=== PATIENT | female | born 1990 | race Caucasian/White ===

== ENCOUNTER 2018-01-14 21:33 | Emergency (ER) | payer BC ==
[~2018-01-14] VITALS: Ht 160 cm; Wt 67.0 kg
[2018-01-14 22:25] VITALS: BP 129/89; PULSE 99; RESP 16; TEMP 97.9; O2SAT 99
[2018-01-14 22:50] VITALS: BP 133/86; PULSE 99; RESP 20; O2SAT 100
[2018-01-14] MEDS ORDERED: MONT10TA4 PO (22:54)
[2018-01-14] MEDS ORDERED: CHIL5SOL PO (22:54)
[2018-01-14] MEDS ORDERED: NOVOLOGP2 SQ (22:54)
--- NOTE | 2018-01-14 23:08 | RADRPT ---
EXAM DATE/TIME: 01/14/2018 22:35 [place] COMPARISON: No previous studies available for comparison. INDICATIONS : Upper extremity tingling and numbness sudden onset 2 hours ago. Thyroidectomy yesterday. MEDICAL HISTORY : None. SURGICAL HISTORY : Thryoidectomy. ENCOUNTER: Initial ACUITY: 1 day PAIN SCORE: 0/10 LOCATION: Bilateral chest FINDINGS: PA and lateral views of the chest demonstrate the lungs to be symmetrically aerated without evidence of mass, infiltrate or effusion. The cardiomediastinal contours are unremarkable. Osseous structure s are intact. CONCLUSION: No acute disease. Severiano Baez MD on January 14, 2018 at 23:05 Board Certified Radiologist. This report was verified electronically.
[2018-01-15] MEDS ORDERED: SODIUM CHLOR 0.9% 1000 ML INJ 1,000 ML IV ONE
--- NOTE | 2018-01-15 00:07 | PD ---
HPI . 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 She is concerned about hypocalcemia. She states that she has eaten 10 Tums and drank a large glass of milk without relief of her symptoms prompted her to visit us [facility]. She rates her symptoms as 10/10 and describes the quality of the symptoms as restlessness. The symptoms have been constant. Onset was today. PFSH Past Medical History ?: Not Past Surgical History Tonsillectomy: Yes Other Surgery: Yes (Thyroidectomy) Social History Alcohol Use: No Tobacco Use: No Substance Use: No Allergies-Medications (Allergen,Severity, Reaction): Coded Allergies: No Known Allergies (Unverified , 01/14/18) Reported Meds & Prescriptions Reported Meds & Active Scripts Active Reported Loratadine Allergy (Loratadine) 5 Mg/5 Ml Solution 10 Mg PO Montelukast (Montelukast Sodium) 10 Mg Tab 10 Mg PO HS Novolog Inj (Insulin Aspart) 1,000 Unit/10 Ml Vial 1-9 Units SQ ACHS Max dose at bedtime:( )units; sugars less than 70,(0)units; sugars 150-199,(1) unit; sugars 200-249,(3) units; sugars 250-299,(5) units; sugars 300-349,(7) units; sugars greater than 349,(9) units Review of Systems Except as stated in HPI: all other systems reviewed are Neg General / Constitutional: No: Fever, Chills Neurologic: Positive: Paresthesia, Other (Twitching) Physical Exam Narrative GENERAL: Awake and alert and in no acute distress. SKIN: Warm and dry. HEAD: Normocephalic/atraumatic. EYES: Pupils are equal. Extraocular movements are intact. NECK: Normal range of motion. CARDIOVASCULAR: Regular rate and rhythm. RESPIRATORY: Nonlabored respirations. MUSCULOSKELETAL: Atraumatic. NEUROLOGICAL: Nonfocal. PSYCHIATRIC: Appropriate mood and affect. Data Data Last Documented VS Vital Signs Date Time Temp Pulse Resp B/P (MAP) Pulse Ox O2 Delivery O2 Flow Rate FiO2 01/14/18 22:50 99 20 133/86 (102) 100 Room Air 01/14/18 22:25 97.9 Orders Orders Sepsis Workup Initiated (01/14/18 ) Complete Blood Count With Diff (01/14/18 22:19) Comprehensive Metabolic Panel (01/14/18 22:19) Lactic Acid Sepsis Protocol (01/14/18 22:19) Urinalysis - C+S If Indicated (01/14/18:) Blood Culture (01/14/18:) Blood Glucose (01/14/18:19) Ecg Monitoring (01/14/18:) Iv Access Insert/Monitor (01/14/18:) Oximetry (01/14/18:) Chest, Pa & Lat (01/14/18:) Sodium Chlor 0.9% 1000 Ml Inj (Ns 1000 M (01/15/18 00:00) Lorazepam Inj (Ativan Inj) (01/15/18 00:45) Calcium Gluconate Inj (Calcium Gluconate (01/15/18 01:00) Calcium Chloride Inj (Calcium Chloride I (01/15/18 02:45) Basic Metabolic Panel (Bmp) (01/15/18 05:00) Magnesium (Mg) (01/15/18 05:00) Labs Laboratory Tests Test 01/15/18 00:00 01/15/18 00:20 01/15/18 04:27 White Blood Count 7.9 TH/MM3 Red Blood Count 4.53 MIL/MM3 Hemoglobin 14.0 GM/DL Hematocrit 40.8 % Mean Corpuscular Volume 90.1 FL Mean Corpuscular Hemoglobin 31.0 PG Mean Corpuscular Hemoglobin Concent 34.4 % Red Cell Distribution Width 12.1 % Platelet Count 192 TH/MM3 Mean Platelet Volume 10.0 FL Neutrophils (%) (Auto) 55.0 % Lymphocytes (%) (Auto) 33.9 % Monocytes (%) (Auto) 9.6 % Eosinophils (%) (Auto) 1.2 % Basophils (%) (Auto) 0.3 % Neutrophils # (Auto) 4.3 TH/MM3 Lymphocytes # (Auto) 2.7 TH/MM3 Monocytes # (Auto) 0.8 TH/MM3 Eosinophils # (Auto) 0.1 TH/MM3 Basophils # (Auto) 0.0 TH/MM3 CBC Comment DIFF FINAL Differential Comment Blood Urea Nitrogen 7 MG/DL 5 MG/DL Creatinine 0.77 MG/DL 0.71 MG/DL Random Glucose 177 MG/DL 84 MG/DL Total Protein 7.4 GM/DL Albumin 3.6 GM/DL Calcium Level 7.4 MG/DL 10.0 MG/DL Alkaline Phosphatase 100 U/L Aspartate Amino Transf (AST/SGOT) 27 U/L Alanine Aminotransferase (ALT/SGPT) 37 U/L Total Bilirubin 0.4 MG/DL Sodium Level 141 MEQ/L 141 MEQ/L Potassium Level 3.5 MEQ/L 3.9 MEQ/L Chloride Level 100 MEQ/L 104 MEQ/L Carbon Dioxide Level 30.6 MEQ/L 29.5 MEQ/L Anion Gap 10 MEQ/L 8 MEQ/L Estimat Glomerular Filtration Rate 91 ML/MIN 100 ML/MIN Protein Corrected Calcium 7.3 MG/DL Lactic Acid Level 1.4 mmol/L Magnesium Level 1.5 MG/DL MDM Medical Decision Making Medical Screen Exam Complete: Yes Emergency Medical Condition: Yes Differential Diagnosis My differential diagnosis of paresthesias includes but is not limited to anxiety , radiculopathy, peripheral neuropathy, peripheral vascular disease, compartment syndrome Narrative Course This patient presents complaining of twitching and tingling which started today following a thyroidectomy done yesterday. The patient is concerned about hypocalcemia. I have researched this on up-to-date. Acute hypocalcemia is, indeed, a complication of thyroidectomy. Symptoms can include tetany and paresthesias. Treatment is with calcium and calcitriol. However, the diagnosis needs to be confirmed by a serum calcium level and corrected calcium level. These are in process. In the meantime, I have ordered IV fluids. She is slightly tachycardic at about 100. This patient's labs were ordered while she was still in triage. Unfortunately, they were not immediately sent to the lab. CBC & BMP Diagram 01/15/18 00:00 Total Protein 7.4, Albumin 3.6, Calcium Level 7.4 *L, Alkaline Phosphatase 100, Aspartate Amino Transf (AST/SGOT) 27, Alanine Aminotransferase (ALT/SGPT) 37, Total Bilirubin 0.4 IV calcium has now been ordered. The patient reported no improvement in her symptoms with 1 g of calcium. I attempted to obtain some guidance from [facility] about the amount of calcium needed to correct her calcium. I was unable to find any guidance. I consulted Dr. Landers who recommended giving an additional 2 gms of calcium and then recheck the calcium as well as magnesium and potassium levels. These have been ordered. The patient is finally feeling better following a total of 3 g of calcium. BMP Diagram 01/15/18 00:00 Total Protein 7.4, Albumin 3.6, Calcium Level 7.4 *L, Alkaline Phosphatase 100, Aspartate Amino Transf (AST/SGOT) 27, Alanine Aminotransferase (ALT/SGPT) 37, Total Bilirubin 0.4 01/15/18 04:27 Calcium Level 10.0 #, Magnesium Level 1.5 Patient will be discharged. Diagnosis Primary Impression: Hypocalcemia Patient Instructions: General Instructions, Hypocalcemia (DC) Disposition: 01 DISCHARGE HOME Condition: Stable Lashae Bolaños MD Jan 15, 2018 00:07
[2018-01-15 00:24] LABS: AUTOMATED NEUTROPHIL # 4.3 TH/MM3 (1.8-7.7); BASOPHIL % 0.3 % (0.0-2.0); EOSINOPHIL # 0.1 TH/MM3 (0-0.4); EOSINOPHIL % 1.2 % (0.0-4.0); HEMATOCRIT 40.8 % (35.0-46.0); LYMPH % 33.9 % (9.0-44.0); LYMPHOCYTE # 2.7 TH/MM3 (1.0-4.8); MEAN CELL VOLUME 90.1 FL (80.0-100.0); MEAN CORPUSCULAR HGB CONC 34.4 % (32.0-36.0); MONO % 9.6 % (0.0-8.0); MONOCYTE # 0.8 TH/MM3 (0-0.9); PLATELET COUNT 192 TH/MM3 (150-450); RED BLOOD COUNT 4.53 MIL/MM3 (4.00-5.30); RED CELL DISTRIBUTION WIDTH 12.1 % (11.6-17.2); WHITE BLOOD COUNT 7.9 TH/MM3 (4.0-11.0)
[2018-01-15] MEDS ORDERED: LORazepam 2 MG/ML VIAL IV PUSH ONE (00:45)
[2018-01-15 00:51] LABS: ALBUMIN 3.6 GM/DL (3.4-5.0); BICARBONATE 30.6 MEQ/L (21.0-32.0); CALCIUM 7.4 MG/DL (8.5-10.1); CREATININE 0.77 MG/DL (0.50-1.00); TOTAL BILIRUBIN ADULT 0.4 MG/DL (0.2-1.0); TOTAL PROTEIN 7.4 GM/DL (6.4-8.2)
[2018-01-15 00:56] LABS: CALCIUM-PROTEIN CORRECTED 7.3 MG/DL (8.5-10.1)
[2018-01-15] MEDS ORDERED: CALCIUM GLUCONATE 10% 1 GM/10 ML VIAL IV PUSH ONE (01:00)
[2018-01-15] MEDS ORDERED: CALCIUM CHLORIDE INJ 2 GM in SODIUM CHLORIDE 0.9% INJ 100 ML IV ONE (02:45)
[2018-01-15 05:00] LABS: BICARBONATE 29.5 MEQ/L (21.0-32.0); CREATININE 0.71 MG/DL (0.50-1.00); MAGNESIUM 1.5 MG/DL (1.5-2.5)
[2018-01-15 05:50] VITALS: BP 116/76
== END 2018-01-15 05:50 | disposition home or self-care (01) ==
LOC: NEPC 21:33
DX: E83.51 Hypocalcemia (principal); R20.2 Paresthesia of skin; R25.3 Fasciculation
CPT/HCPCS: 71046; 80053; 83605; 83735; 85025; 87040; 96361; 96365; 96375; 99284; J0610; J7030; 80048

== ENCOUNTER 2018-01-16 17:50 | Emergency (ER) | payer BC ==
[~2018-01-16] VITALS: Ht 165.1 cm; Wt 70.0 kg
[~2018-01-16 17:50] MED LIST: CHIL5SOL PO; MONT10TA4 PO; NOVOLOGP2 SQ
--- NOTE | 2018-01-16 18:05 | PD ---
HPI Chief Complaint: Generalized fatigue Time Seen by Provider: 18:02 Travel History International Travel<30 days: No Contact w/Intl Traveler<30days: No History of Present Illness HPI 27-year-old white female presents to the ED with generalized fatigue some paresthesias and some tremors which she noticed starting 3 hours prior to arrival. Patient has a recent history of a thyroidectomy by Dr. Schneider on January 13. Patient was actually seen here 2 nights ago for similar and she had a positive Trousseau sign then, her calcium was 7.3, she received calcium through the IV and was discharged with a calcium of 10. Patient is concerned that her calcium might be dropping off again. PFSH Past Surgical History Tonsillectomy: Yes Other Surgery: Yes (Thyroidectomy) Social History Alcohol Use: No Tobacco Use: No Substance Use: No Allergies-Medications (Allergen,Severity, Reaction): Coded Allergies: No Known Allergies (Unverified , 01/14/18) Reported Meds & Prescriptions Reported Meds & Active Scripts Active Reported Loratadine Allergy (Loratadine) 5 Mg/5 Ml Solution 10 Mg PO Montelukast (Montelukast Sodium) 10 Mg Tab 10 Mg PO HS Novolog Inj (Insulin Aspart) 1,000 Unit/10 Ml Vial 1-9 Units SQ ACHS Max dose at bedtime:( )units; sugars less than 70,(0)units; sugars 150-199,(1) unit; sugars 200-249,(3) units; sugars 250-299,(5) units; sugars 300-349,(7) units; sugars greater than 349,(9) units Review of Systems Except as stated in HPI: all other systems reviewed are Neg Physical Exam Narrative GENERAL: Well-developed well-nourished, no obvious distress, quite pleasant female. SKIN: Focused skin assessment warm/dry. Diabetic pump in place on the left abdomen HEAD: Atraumatic. Normocephalic. EYES: Pupils equal and round. No scleral icterus. No injection or drainage. ENT: No nasal bleeding or discharge. Mucous membranes pink and moist. NECK: Trachea midline. No JVD. CARDIOVASCULAR: Regular rate and rhythm. No murmur appreciated. RESPIRATORY: No accessory muscle use. Clear to auscultation. Breath sounds equal bilaterally. GASTROINTESTINAL: Abdomen soft, non-tender, nondistended. Hepatic and splenic margins not palpable. MUSCULOSKELETAL: No obvious deformities. No clubbing. No cyanosis. No edema. NEUROLOGICAL: Awake and alert. No baseline tremor, the patient may have a small positive Trousseau sign. No asterixis. PSYCHIATRIC: Appropriate mood and affect; insight and judgment normal. Data Data Orders Orders Complete Blood Count With Diff (01/16/18 18:02) Basic Metabolic Panel (Bmp) (01/16/18 18:02) Blood Gas Venous (Vbg) (01/16/18 18:07) Protein Corrected Calcium(Pcc) (01/16/18 18:19) Hepatic Functional Panel (01/16/18 18:19) Calcium Gluconate Inj (Calcium Gluconate (01/16/18 19:15) Ed Discharge Order (01/16/18 20:04) Labs Laboratory Tests Test 01/16/18 18:00 01/16/18 18:07 White Blood Count 6.6 TH/MM3 Red Blood Count 4.71 MIL/MM3 Hemoglobin 14.6 GM/DL Hematocrit 42.2 % Mean Corpuscular Volume 89.7 FL Mean Corpuscular Hemoglobin 30.9 PG Mean Corpuscular Hemoglobin Concent 34.5 % Red Cell Distribution Width 11.9 % Platelet Count 220 TH/MM3 Mean Platelet Volume 9.3 FL Neutrophils (%) (Auto) 54.7 % Lymphocytes (%) (Auto) 36.2 % Monocytes (%) (Auto) 6.3 % Eosinophils (%) (Auto) 2.1 % Basophils (%) (Auto) 0.7 % Neutrophils # (Auto) 3.6 TH/MM3 Lymphocytes # (Auto) 2.4 TH/MM3 Monocytes # (Auto) 0.4 TH/MM3 Eosinophils # (Auto) 0.1 TH/MM3 Basophils # (Auto) 0.0 TH/MM3 CBC Comment DIFF FINAL Differential Comment Blood Urea Nitrogen 4 MG/DL Creatinine 0.84 MG/DL Random Glucose 194 MG/DL Calcium Level 7.9 MG/DL Sodium Level 140 MEQ/L Potassium Level 3.8 MEQ/L Chloride Level 99 MEQ/L Carbon Dioxide Level 30.2 MEQ/L Anion Gap 11 MEQ/L Estimat Glomerular Filtration Rate 83 ML/MIN Protein Corrected Calcium 7.7 MG/DL Total Bilirubin 0.4 MG/DL Direct Bilirubin 0.1 MG/DL Indirect Bilirubin 0.3 MG/DL Aspartate Amino Transf (AST/SGOT) 70 U/L Alanine Aminotransferase (ALT/SGPT) 68 U/L Alkaline Phosphatase 110 U/L Total Protein 7.5 GM/DL Albumin 3.8 GM/DL Blood Gas Puncture Site IV LINE Blood Gas Patient Temperature 98.6 Venous Blood pH 7.44 Venous Blood Partial Pressure CO2 44 mmHg Venous Blood Partial Pressure O2 44 mmHg Venous Blood HCO3 30 mmol/L Venous Blood Oxygen Saturation 76 % Venous Blood Oxygen Content 14.7 Vol % Venous Blood Base Excess 5.4 mmol/L Blood Gas Inspired Oxygen 21 % MDM Medical Decision Making Medical Screen Exam Complete: Yes Emergency Medical Condition: Yes Differential Diagnosis Hypocalcemia, inadvertent parathyroidectomy, electrolyte abnormality Narrative Course 27-year-old female roomed in the emergency department, she was seen briefly by Dr. Schneider as well as myself, we agree that she probably has some mild hypocalcemia that is amenable to ER replacement and then discharge. I started her IV in the left wrists, her protein corrected calcium was somewhat low, she was given 2 g IV of calcium gluconate. She is calm and collected. Discussed the results with her and recommend that she continue outpatient follow-up, she is always welcome to return to the emergency department should she need any help. Diagnosis Primary Impression: Hypocalcemia Disposition: DISCHARGE HOME Condition: Stable Albino Vuong MD Jan 16, 2018 18:05
[2018-01-16 18:26] LABS: AUTOMATED NEUTROPHIL # 3.6 TH/MM3 (1.8-7.7); BASOPHIL % 0.7 % (0.0-2.0); EOSINOPHIL # 0.1 TH/MM3 (0-0.4); EOSINOPHIL % 2.1 % (0.0-4.0); HEMATOCRIT 42.2 % (35.0-46.0); HEMOGLOBIN 14.6 GM/DL (11.6-15.3); LYMPH % 36.2 % (9.0-44.0); LYMPHOCYTE # 2.4 TH/MM3 (1.0-4.8); MEAN CELL VOLUME 89.7 FL (80.0-100.0); MEAN CORPUSCULAR HEMOGLOBIN 30.9 PG (27.0-34.0); MEAN CORPUSCULAR HGB CONC 34.5 % (32.0-36.0); MEAN PLATELET VOLUME 9.3 FL (7.0-11.0); MONO % 6.3 % (0.0-8.0); MONOCYTE # 0.4 TH/MM3 (0-0.9); NEUT % 54.7 % (16.0-70.0); PLATELET COUNT 220 TH/MM3 (150-450); RED BLOOD COUNT 4.71 MIL/MM3 (4.00-5.30); RED CELL DISTRIBUTION WIDTH 11.9 % (11.6-17.2); WHITE BLOOD COUNT 6.6 TH/MM3 (4.0-11.0)
[2018-01-16 18:59] LABS: BICARBONATE 30.2 MEQ/L (21.0-32.0); CALCIUM 7.9 MG/DL (8.5-10.1); CREATININE 0.84 MG/DL (0.50-1.00)
[2018-01-16] MEDS ORDERED: CALCIUM GLUCONATE INJ 2 GM in SODIUM CHLORIDE 0.9% INJ 100 ML IV ONE (19:15)
[2018-01-16 19:47] LABS: CALCIUM 7.8 MG/DL (8.5-10.1)
[2018-01-16 20:00] LABS: ALBUMIN 3.8 GM/DL (3.4-5.0); CALCIUM-PROTEIN CORRECTED 7.7 MG/DL (8.5-10.1); DIRECT BILIRUBIN ADULT 0.1 MG/DL (0.0-0.2); INDIRECT BILIRUBIN 0.3 MG/DL (0.0-0.8); TOTAL BILIRUBIN ADULT 0.4 MG/DL (0.2-1.0); TOTAL PROTEIN 7.5 GM/DL (6.4-8.2)
== END 2018-01-16 21:03 | disposition home or self-care (01) ==
LOC: NEPD 17:50
DX: E83.51 Hypocalcemia (principal); E89.0 Postprocedural hypothyroidism; R53.83 Other fatigue; R25.1 Tremor, unspecified
CPT/HCPCS: 80048; 80076; 82805; 84155; 85025; 96374; 99284; J0610; 82330